=== PATIENT | female | born 1985 | race Hispanic/Latino ===

== ENCOUNTER 2018-08-24 15:59 | Day surgery (SDC) | payer BC, OTHER ==
[2018-08-24 18:34] VITALS: BMI 24.7
--- NOTE | 2018-08-24 21:09 | PDOC.LDHP ---
Labor and Delivery H&P Chief complaint: other (URI sxs) HPI: Patient arrived to L&D while I was in the OR patient of Dr Gilliam, here for URI sxs...NOS HPI: 32 yo HXs here for URI eval...first seen in ED and workup neg, FLU neg. Sent to L&D for "monitoring" Review of Systems: no LOF, no VB, no recent rauma, no fevers, no sxs Current gestational age (weeks): 24 (2 days) Dating criteria: last menstrual period Grav: 4 Para: 3 Current complications: none Abnormal US findings: No Current medications: pre- vitamins Previous surgical history: none Allergies/Adverse Reactions: Allergies Allergy/AdvReac Type Severity Reaction Status Date / Time No Known Allergies Allergy Unverified 08/24/18 18:30 Social history: none - Physical Exam Vital signs reviewed and normal: yes General: NAD Heart: RRR Lungs: CTAB Abdomen: gravid Extremeties: no edema [place] contractions every: FHTs 1402, no ctx - Assessment URI sxs...FLU negative in ED here. No evidenec aute pulmonmary process, afebrile OK for outpatient care No evidence PTL F/U 2 as scheduled
--- NOTE | 2018-08-24 21:44 | PDOC.EVN ---
Event Note - Event Note Event Note: Patient seen at Bedside, no acute distress. No evidence SOB or PTL...ok for outpatient care
== END 2018-08-24 22:00 | disposition home or self-care (01) ==
LOC: ERS 15:59 → L&D/OP 15:59 → EDSTATUS 16:05 → L&D/OP 22:00
PROVIDERS: ATTEND Family Medicine
DX: O99.89 Other specified diseases and conditions complicating pregnancy, childbirth and the puerperium (principal); R06.02 Shortness of breath; R68.83 Chills (without fever); R51 Headache; R19.7 Diarrhea, unspecified; O21.2 Late vomiting of pregnancy; O36.8120 Decreased fetal movements, second trimester, not applicable or unspecified; Z3A.24 24 weeks gestation of pregnancy; Z79.899 Other long term (current) drug therapy
CPT/HCPCS: 87804; 99282

== ENCOUNTER 2018-10-07 23:08 | Day surgery (SDC) | payer BC, OTHER ==
[2018-10-07 23:56] VITALS: BP 109/55; TEMP 98.4; BMI 22.0
--- NOTE | 2018-10-08 01:07 | PRG ---
DATE OF SERVICE: 10/08/2018 PRIMARY SAFETY INSTRUCTOR: Caleb Gilliam MD CHIEF COMPLAINT: Decreased movement. HISTORY OF PRESENT ILLNESS: The patient is a 32-year-old female with an intrauterine at 30 weeks and 5 days, who presents to Labor and Delivery ER after getting worries about the status of her baby. The patient reports that she was having swelling earlier today that has spontaneously resolved, but given her concerns that she had a history of preeclampsia with her previous prompted her to come in with when she stops feeling her baby move that she regularly does and was worried that baby may have problems. However, since arrival, she has began feeling baby move again. The patient reports she has had a recent upper respiratory infection, but denies any fever, fall, cough, headache, chest pain, shortness of breath, nausea, or vomiting. She does report some constipation. Denies hip problems, knee problems, or muscle weakness. Denies vaginal bleeding or leakage of fluid. Denies any new rashes. PAST MEDICAL HISTORY: Significant for anemia. PAST SURGICAL HISTORY: Negative. SOCIAL HISTORY: Denies drug, alcohol, or tobacco use. ALLERGIES: NO KNOWN DRUG ALLERGIES. MEDICATIONS: Iron and vitamins. OB HISTORY: This is the patient's 4th . She has had three term deliveries. REVIEW OF SYSTEMS: Per HPI. PHYSICAL EXAMINATION: VITAL SIGNS: Blood pressure is 119/58, heart rate is 79, respiratory rate of 18, and temperature 98.8. GENERAL: She appears to be in no acute distress. She is alert, oriented, cooperative, and pleasant to interact with. HEAD: Normocephalic and atraumatic. LUNGS: Clear to auscultation bilaterally. HEART: Has regular rate and rhythm. ABDOMEN: Gravid, soft, nontender. EXTREMITIES: Nontender, nonedematous. : Exam has been deferred. The patient has a heart tracing and NST for decreased movement. Fetus with a baseline in the 130s with moderate long-term variability, positive 15 x 15 accelerations, no decelerations, and no contractions visible on the monitor. ASSESSMENT AND PLAN: The patient is a 32-year-old female with an intrauterine at 30 weeks and 5 days, who presents after having concern of her baby status after feeling decreased movement. The fetus has a reactive NST and has a category 1 tracing. Reassurance has been given to the patient. She has an appointment to see her primary OB, Dr. Caleb Gilliam, in the next 2 weeks, which we have encouraged to keep. Job ID: [id number]
== END 2018-10-08 00:55 | disposition home or self-care (01) ==
LOC: L&D/OP 23:08
PROVIDERS: ATTEND Family Medicine
DX: O36.8130 Decreased fetal movements, third trimester, not applicable or unspecified (principal); O99.013 Anemia complicating pregnancy, third trimester; Z3A.30 30 weeks gestation of pregnancy
CPT/HCPCS: 99282

== ENCOUNTER 2018-12-07 05:35 | Inpatient (IN) | payer BC, OTHER ==
[2018-12-07] MEDS: Lactated Ringer's 1,000 ML IV SCH ×3 (06:09→16:32)
[2018-12-07] MEDS ORDERED: CEFAZOLIN 2 GM in Premix Bag 1 BAG IVPB SCH (06:13)
[2018-12-07] MEDS ORDERED: Ondansetron PF 4 MG/2 ML Vial IVP PRN ×3 (06:13→11:42)
[2018-12-07] MEDS ORDERED: Bicitra 30 ML UDCUP PO SCH (06:13)
[2018-12-07] MEDS ORDERED: Promethazine HCl 25 MG/ML VIAL IM PRN ×2 (06:13→11:42)
[2018-12-07 06:25] VITALS: BMI 26.3
[2018-12-07 06:28] LABS: Hemoglobin 9.2 g/dL (12.0-16.0); Mean Corpuscular HGB CONC 32.9 g/dL (32.0-36.0); Mean Corpuscular Hemoglobin 25.6 pg (27.0-31.0); Mean Corpuscular Volume 77.9 fL (78.0-98.0); Mean Platelet Volume 9.2 fL (7.4-10.4); Platelet Count 324 thou/uL (130-400); RBC Distribution Width 18.8 % (11.5-14.5); Red Blood Cell (RBC) Count 3.58 mill/uL (4.20-5.40); White Blood Cell (WBC) Count 6.9 thou/uL (4.8-10.8)
[2018-12-07] MEDS ORDERED: Ondansetron PF 4 MG/2 ML Vial ONE ×2 (07:03→15:14)
[2018-12-07] MEDS ORDERED: Oxytocin 10 UNITS/ML VIAL ONE (07:04)
[2018-12-07 07:06] LABS: HBSAg Index 0.31 S/CO (0-0.99); Hep B Surf Ag Non-Reactive S/CO (NonReactive); Syphilis Antibody Nonreactive (Nonreactive); Syphilis Antibody Index 0.04 S/CO (<1.00 Non-Reactive)
[2018-12-07] MEDS ORDERED: Fentanyl 100 MCG/2 ML VIAL ONE (08:05)
[2018-12-07] MEDS ORDERED: Promethazine HCl 25 MG/ML VIAL ONE (08:26)
[2018-12-07] MEDS ORDERED: HYDROmorphone 2 MG/ML VIAL SLOW IVP PRN (08:31)
[2018-12-07] MEDS ORDERED: L&D-Morphine 4 MG/ML VIAL SLOW IVP PRN (08:31)
[2018-12-07] MEDS ORDERED: Ondansetron HCl/PF 4 MG/2 ML Vial IVP PRN (08:31)
[2018-12-07] MEDS ORDERED: Ketorolac Tromethamine 30 MG/ML VIAL IVP SCH (08:45)
[2018-12-07] MEDS ORDERED: NS / Oxytocin 40 units/1000ml 1,000 ML ONE ×2 (08:56→10:44)
[2018-12-07] MEDS ORDERED: Meperidine HCl/PF 25 MG/ML VIAL ONE ×2 (09:43→10:37)
[2018-12-07] MEDS: Meperidine HCl/PF 25 MG/ML VIAL SLOW IVP PRN ×2 (09:45→10:38)
[2018-12-07] MEDS ORDERED: Morphine 4 MG/ML VIAL ONE (10:27)
[2018-12-07] MEDS ORDERED: diphenhydrAMINE 25 MG CAP PO PRN ×2 (11:19→11:42)
[2018-12-07] MEDS ORDERED: Meperidine HCl/PF 25 MG/ML VIAL IM PRN (11:19)
[2018-12-07] MEDS ORDERED: NS / Oxytocin 40 units/1000ml 1,000 ML IV SCH (11:19)
[2018-12-07] MEDS ORDERED: Bisacodyl 10 MG SUPP PR PRN (11:19)
[2018-12-07] MEDS ORDERED: HYDROcodone/Acetaminophen 5/325 mg Tablet PO PRN ×2 (11:19)
[2018-12-07] MEDS ORDERED: diphenhydrAMINE 50 MG/ML VIAL IM PRN (11:42)
[2018-12-07] MEDS ORDERED: Naloxone HCl 0.4 mg/ml Vial IV PRN (11:42)
[2018-12-07] MEDS ORDERED: HYDROmorphone 10 mg/100 ml CADD IVPB PRN (11:42)
[2018-12-07] MEDS ORDERED: Zolpidem Tartrate 5 MG TAB PO PRN (11:42)
[2018-12-07] MEDS ORDERED: diphenhydrAMINE 50 MG/ML VIAL IVP PRN (11:42)
[2018-12-07] MEDS ORDERED: Prenatal Vitamin 1 TAB PO SCH (11:45)
[2018-12-07] MEDS ORDERED: Docusate Calcium (SURFAK) 240 MG CAP PO SCH (11:45)
[2018-12-07] MEDS ORDERED: Communication Order-Pharmacy FS SCH (11:45)
[2018-12-07] MEDS ORDERED: Ferrous Sulfate 325 MG TAB PO SCH (11:45)
[2018-12-07] MEDS: Ibuprofen 800 MG TAB PO SCH ×2 (13:33→22:10)
[2018-12-07] MEDS: Ferrous Sulfate 325 MG TAB PO SCH (13:34)
--- NOTE | 2018-12-07 15:18 | OP ---
DATE OF PROCEDURE: 12/07/2018 RESIDENT SURGEON: Jack Regalado MD. ATTENDING SURGEON: Dr. Caleb Gilliam. PROCEDURE PERFORMED: Primary low transverse section. PREOPERATIVE DIAGNOSES: 1. Term intrauterine . 2. Footling breech position. POSTOPERATIVE DIAGNOSES: 1. Term intrauterine . 2. Footling breech delivered. ANESTHESIA: Spinal. INDICATION: This is a 32-year-old, G4, P3 female, who presents for repeat scheduled . PROCEDURE IN DETAIL: After risks, benefits, and alternatives were explained to the patient, she gave informed consent. Preoperative antibiotics included 2 g of cefazolin IV. The patient was taken to the operating room and spinal anesthesia was initiated. She was placed in the supine position with a left tilt and prepped and draped in usual sterile fashion. A Pfannenstiel incision was made with a scalpel and carried down to the level of fascia, which was sharply nicked. The fascia was cut and extended bilaterally with Cornejo scissors. The inferior and superior edges of the cut fascial edges were elevated with Bernabe clamps and the underlying rectus muscles were sharply and bluntly dissected free. The recti were divided digitally and retracted manually. The peritoneum was entered bluntly and retracted manually. Allis O ring was placed. A low transverse score was made with the scalpel and the uterus was entered in the midline. Clear fluid was seen. Hysterotomy was extended manually. The infant was noted to be in footling breech position. Legs were delivered. was rotated and the arms were both delivered. Finally, the head was delivered easily. The mouth and nares were bulb suctioned. The cord was clamped and cut, and grossly normal female was handed to waiting nurse. Cord blood was obtained. Placenta was manually extracted and found to be intact with three-vessel cord and discarded. The uterus was externalized and endometrium was curetted with dry lap. The hysterotomy was closed with running locking 0 Vicryl, followed by a running nonlocking 0 Vicryl imbricating suture. Following this, hemostasis was noted. The abdomen was irrigated with saline and suctioned free of clots. The anterior and posterior gutters were examined and found to be hemostatic. The peritoneum was closed with 3-0 chromic in a running nonlocking fashion. The fascia was closed with running nonlocking 0 PDS suture. The subcutaneous tissue was irrigated and closed with three simple interrupted 3-0 chromic sutures. The skin was approximated with jai and a pressure dressing was placed. All counts were correct. The patient tolerated the procedure well and was taken to recovery room in stable condition. ESTIMATED BLOOD LOSS: 600 mL. COMPLICATIONS: None. SPECIMENS: Cord blood sent to lab for blood type. FINDINGS: Grossly normal placenta with three-vessel cord discarded. DRAINS: Day to gravity, draining clear urine. Job ID: [id number]
[2018-12-07] MEDS: Docusate Calcium (SURFAK) 240 MG CAP PO SCH (22:09)
[2018-12-08] MEDS: Lactated Ringer's 1,000 ML IV SCH (02:00)
[2018-12-08 06:39] LABS: Hemoglobin 7.5 g/dL (12.0-16.0); Mean Corpuscular HGB CONC 32.3 g/dL (32.0-36.0); Mean Corpuscular Hemoglobin 25.4 pg (27.0-31.0); Mean Corpuscular Volume 78.5 fL (78.0-98.0); Mean Platelet Volume 8.6 fL (7.4-10.4); Platelet Count 256 thou/uL (130-400); RBC Distribution Width 18.4 % (11.5-14.5); Red Blood Cell (RBC) Count 2.97 mill/uL (4.20-5.40); White Blood Cell (WBC) Count 12.1 thou/uL (4.8-10.8)
[2018-12-08] MEDS: Docusate Calcium (SURFAK) 240 MG CAP PO SCH ×2 (09:29→22:04)
[2018-12-08] MEDS: Prenatal Vitamin 1 TAB PO SCH (09:29)
[2018-12-08] MEDS: Ferrous Sulfate 325 MG TAB PO SCH ×2 (09:29→16:24)
[2018-12-08] MEDS ORDERED: HYDROcodone/Acetaminophen 5/325 mg Tablet PO PRN (10:34)
[2018-12-08] MEDS: Ibuprofen 800 MG TAB PO SCH ×3 (14:13→22:04)
[2018-12-08] MEDS: HYDROcodone/Acetaminophen 5/325 mg Tablet PO PRN (20:28)
[2018-12-08] MEDS: Simethicone Chewable 80 MG TAB PO PRN (20:29)
[2018-12-09] MEDS: HYDROcodone/Acetaminophen 5/325 mg Tablet PO PRN ×2 (06:17→18:31)
[2018-12-09] MEDS: Ibuprofen 800 MG TAB PO SCH ×3 (06:18→21:23)
[2018-12-09] MEDS: Simethicone Chewable 80 MG TAB PO PRN ×2 (06:18→21:23)
[2018-12-09] MEDS: Ferrous Sulfate 325 MG TAB PO SCH ×2 (09:09→18:31)
[2018-12-09] MEDS: Docusate Calcium (SURFAK) 240 MG CAP PO SCH ×2 (09:09→21:23)
[2018-12-09] MEDS: Prenatal Vitamin 1 TAB PO SCH (09:09)
[2018-12-10] MEDS: Ibuprofen 800 MG TAB PO SCH ×2 (05:22→13:19)
[2018-12-10] MEDS: HYDROcodone/Acetaminophen 5/325 mg Tablet PO PRN (05:22)
[2018-12-10 08:54] VITALS: BP 116/60; TEMP 98.6
[2018-12-10] MEDS: Docusate Calcium (SURFAK) 240 MG CAP PO SCH (10:47)
[2018-12-10] MEDS: Ferrous Sulfate 325 MG TAB PO SCH (10:47)
[2018-12-10] MEDS: Prenatal Vitamin 1 TAB PO SCH (10:47)
== END 2018-12-10 14:45 | disposition home or self-care (01) | DRG 788 ==
LOC: L&D 05:35 → 3SW 11:14
PROVIDERS: ADMIT Family Medicine; ATTEND Family Medicine
PROC: 10D00Z1 Extraction of Products of Conception, Low, Open Approach (ICD-10-PCS; principal; 2018-12-07)
DX: O32.8XX0 Maternal care for other malpresentation of fetus, not applicable or unspecified (principal); Z3A.39 39 weeks gestation of pregnancy; Z37.0 Single live birth
CPT/HCPCS: 36415; 51702; 76815; 85027; 85461; 86780; 86850; 86900; 86901; 87340; 90384; 96372; J0690; J2175; J2270; J2405; J2550; J2590; J3010